=== PATIENT | male | born 1940 | race Caucasian/White ===

== ENCOUNTER 2022-12-13 16:20 | Inpatient (IN) | payer OTHER ==
[~2022-12-13] VITALS: Ht 175.3 cm; Wt 95.3 kg
[2022-12-13 16:35] VITALS: BP_SYST 132
--- NOTE | 2022-12-13 16:35 | NUR ---
Placed in room 4 . Placed on monitoring manager, blood pressure machine and pulse oximeter. To gown for exam. Side rails up. Report given to RITA Billings
--- NOTE | 2022-12-13 16:38 | NUR ---
ER at bedside examining patient.
--- NOTE | 2022-12-13 16:38 | NUR ---
PT BIB SELF, AMBULATED TO BED 4. PT IS A&OX4, C/O DIARRHEA FOR TWO AND A HALF WEEKS. PT DESCRIBES STOOLS WATERY, BUT NO BLOOD NOTED. PT DENIES PAIN AT THIS TIME. PT STATES HAS A HISTORY OF HTN, DIABETES. PT TAKES COUMADIN BY MOUTH DAILY. BEDRAILS UP X2. WILL CONTIUE TO MONITOR AND ASSESS.
[2022-12-13] MEDS ORDERED: NACL 0.9% 1,000 ML IV ONE (16:45)
[2022-12-13 16:57] LABS: BILIRUBIN,URINE NEGATIVE (NEGATIVE); BLOOD, URINE NEGATIVE (NEGATIVE); CLARITY/URINE CLEAR (CLEAR); COLOR,URINE YELLOW (YELLOW); GLUCOSE,URINE NEGATIVE (NEGATIVE); KETONES,URINE NEGATIVE (NEGATIVE); LEUKOCYTE ESTERASE ,URINE NEGATIVE (NEGATIVE); NITRITE, URINE NEGATIVE (NEGATIVE); PH,URINE 5.5 (5.0-8.0); PROTEIN URINE 1+ (NEGATIVE); UROBILINOGEN,URINE 0.2 (0.2-1.0)
[2022-12-13 17:05] LABS: BACTERIA,URINE FEW /HPF (None Seen); FINE GRANULAR CASTS,URINE 0-10 /LPF (None Seen); MUCUS,URINE None Seen /LPF (None Seen); RBC,URINE 0-3 /HPF (0-3); WBC,URINE NONE SEEN /HPF (0-3)
--- NOTE | 2022-12-13 17:17 | NUR ---
NS 1000ML BOLUS INITIATED. TO BE COMPLETED AT 1817.
--- NOTE | 2022-12-13 17:17 | NUR ---
# 20 gauge angiocath placed to LFA. Use of asceptic technique. Opsite placed over site. Blood return noted. Blood for lab drawn from site. Flushed with 10 cc of normal saline. No evidence of infiltration noted. Patient tolerated well.
[2022-12-13 17:21] LABS: BASOPHILS # (AUTO) 0.1 K/uL (0.0-0.2); BASOPHILS % (AUTO) 0.7 % (0.0-2.0); EOSINOPHILS # (AUTO) 0.4 K/uL (0.0-0.4); EOSINOPHILS % (AUTO) 4.1 % (0.0-4.0); HEMATOCRIT 29.9 % (36-54); HEMOGLOBIN 10.1 g/dL (14.0-18.0); LYMPHOCYTES # (AUTO) 0.9 K/uL (1.0-5.5); LYMPHOCYTES % (AUTO) 8.7 % (20.5-51.5); MEAN CORPUSCULAR HEMOGLOBIN 22 pg (27-31); MEAN CORPUSCULAR HGB CONC 34 % (32-36); MEAN CORPUSCULAR VOLUME 66 fL (79.0-98.0); MONOCYTES # (AUTO) 1.1 K/uL (0.0-1.0); MONOCYTES % (AUTO) 11.2 % (1.7-9.3); NEUTROPHILS # (AUTO) 7.5 K/uL (1.8-7.7); NEUTROPHILS % (AUTO) 75.3 % (40.0-70.0); PLATELET COUNT (AUTO) 251 K/uL (130-430); RED BLOOD CELL COUNT(AUTO) 4.55 MIL/uL (4.2-6.2); RED CELL DISTRIBUTION WIDTH 19.8 % (9.0-15.0)
[2022-12-13 17:31] LABS: ANION GAP 15 (5-15); CALCIUM 8.4 mg/dL (8.4-11.0); CHLORIDE 104 mmol/L (98-107); CREATININE 3.16 mg/dL (0.55-1.30); GLUCOSE 64 mg/dL (70-99); UREA NITROGEN, BLOOD 67 mg/dL (8-21)
[2022-12-13 17:36] LABS: ALANINE AMINOTRANSFERASE 34 U/L (12-78); ALBUMIN 3.4 g/dL (3.4-4.8); ASPARTATE AMINOTRANSFERASE 39 U/L (10-37); LIPASE 86 U/L (73-393); TOTAL BILIRUBIN 0.4 mg/dL (0.0-1.0)
--- NOTE | 2022-12-13 18:05 | NUR ---
MRSA OBTAINED, LABELED AND SENT TO LAB.
[2022-12-13] MEDS ORDERED: WARF4TAB72 PO (18:28)
[2022-12-13] MEDS ORDERED: BENA5TAB38 PO (18:28)
[2022-12-13] MEDS ORDERED: INSU100V SUBCUT (18:28)
[2022-12-13] MEDS ORDERED: ALFU10TA10 PO (18:28)
[2022-12-13] MEDS ORDERED: ROSU10TA2 PO (18:28)
--- NOTE | 2022-12-13 18:29 | NUR ---
MED REC AND BELONGING COMPLETED.
--- NOTE | 2022-12-13 18:30 | NUR ---
LAB AT BEDSIDE.
--- NOTE | 2022-12-13 19:23 | NUR ---
ENDORSED PT TO RITA ADAMES. ALL QUESTIONS AND CONCERNS ADDRESSED.
[2022-12-13] MEDS ORDERED: 0.45% NACL 1,000 ML IV SCH (19:45)
--- NOTE | 2022-12-13 19:48 | NUR ---
Admit bed requested Patient will be admitted to care of . Admitted to Tele unit. Diagnosis Dehydration and Acute Kidney Injury Inpatient Yes Observation No Orientation concerns or request close to nursing station No Covid Status Negatve On vent or bipap N/A Isolation requirements Contact Precautions? Pt has diarrhea. Needs a sitter No From Home Yes Requires Dialysis No Med Rec Completed Yes
--- NOTE | 2022-12-13 21:15 | NUR ---
Patient will be admitted to care of Dr. See. Admitted to Tele unit. Will go to room 123 bed A. Belongings list completed. Complete and up to date summary report printed. SBAR report given at bedside to RITA Melendrez with opportunity for questions.
[2022-12-13 21:55] VITALS: BP_SYST 126
[2022-12-13] MEDS ORDERED: DEXTROSE 50% JECT 50 ML DISP.SYRIN ONE (23:41)
[2022-12-13] MEDS ORDERED: D5W 1,000 ML IV PRN (23:45)
[2022-12-13] MEDS ORDERED: DEXTROSE 50% JECT 50 ML DISP.SYRIN IVP PRN (23:45)
[2022-12-13] MEDS ORDERED: GLUCOSE (DEXTROSE) ORAL GEL -Adults PO PRN (23:45)
--- NOTE | 2022-12-13 23:50 | NUR ---
Received pt from ED around 21:30 pm. c/c- diarrhea x 2 wk. Dx- PERLA and Dehydration. Pt awake and oriented x 4. All history was obtained by pt. HX of DM and humulog at home. t stated he hasn't eat last 2 days. Addendum: 12/14/22 at 0215 by [facility], RN RN Nurse checked pt's blood sugar at 23:16 pm- was 28 and 27. Pt awake and alert but unable to remember where he is. skin warm and no sweating sign. Dr Lang(ID) at bedside. changed ivf to D51/2NS at 125 ml/hr and Given d50%w 50 ml and given juice by oral. Then BS went up to 157 at MN. Informed to pt's daughter Kandy about pt's hypoglycemia. Also informed to Dr Chin about pt's hypoglycemia and updated Dr Lang's order.
[2022-12-14] MEDS ORDERED: DEXTROSE 50% JECT 50 ML DISP.SYRIN IVP ONE
[2022-12-14 00:28] VITALS: BP_SYST 110
[2022-12-14] MEDS: D5/0.45 NS 1,000 ML IV SCH ×3 (01:15→16:03)
[2022-12-14] MEDS ORDERED: cefTRIAXone 1 GM IVPB PREMIX 50 ML IV ONE (01:44)
[2022-12-14] MEDS: cefTRIAXone 1 GM in D5W 50 ML IV SCH ×3 (01:54→20:56)
--- NOTE | 2022-12-14 05:49 | NUR ---
CONSULTATION PAGED REASON FOR CONSULTATION: Dehydration, PERLA WAS CONSULT CALLED? Y PERSON WHO WAS NOTIFIED: Estefanía CONSULTING PHYSICIAN: Dr. Hester (Jaycob Archuleta is aeronautical engineering officer) REQUESTING PHYSICIAN: Dr. See
--- NOTE | 2022-12-14 06:36 | NUR ---
CONSULTATION PAGED REASON FOR CONSULTATION:DIARRHEA WAS CONSULT CALLED?Y PERSON WHO WAS NOTIFIED:FARZANA CONSULTING PHYSICIAN:BRIAN GEE KNIFEMAN SPECIALTY:ID KNIFEMAN PHONE NUMBER:[phone] REQUESTING PHYSICIAN:POONAM CAMACHO
--- NOTE | 2022-12-14 07:07 | NUR ---
Dr Lang was here last night and assessed pt. Pt's last blood sugar 99 at 06:30 am. IVF D51/2ns at 125 ml/hr. Sent stool specimen for OB, WBC, CULTURE and C-DIFF. Pt denied any distress at this time.
--- NOTE | 2022-12-14 07:20 | NUR ---
opening note received SBAR from night RN. Patient in bed, respirations even, non labored, bed in low and locked position call light within reach. bed alarm on.
[2022-12-14 08:00] VITALS: BP_SYST 110
[2022-12-14 08:32] LABS: BASOPHILS # (AUTO) 0.1 K/uL (0.0-0.2); BASOPHILS % (AUTO) 0.7 % (0.0-2.0); EOSINOPHILS # (AUTO) 0.7 K/uL (0.0-0.4); EOSINOPHILS % (AUTO) 7.2 % (0.0-4.0); HEMATOCRIT 28.5 % (36-54); HEMOGLOBIN 9.2 g/dL (14.0-18.0); LYMPHOCYTES # (AUTO) 1.1 K/uL (1.0-5.5); LYMPHOCYTES % (AUTO) 12.4 % (20.5-51.5); MEAN CORPUSCULAR HEMOGLOBIN 22 pg (27-31); MEAN CORPUSCULAR HGB CONC 32 % (32-36); MONOCYTES # (AUTO) 1.1 K/uL (0.0-1.0); MONOCYTES % (AUTO) 12.6 % (1.7-9.3); NEUTROPHILS # (AUTO) 6.2 K/uL (1.8-7.7); NEUTROPHILS % (AUTO) 67.1 % (40.0-70.0); PLATELET COUNT (AUTO) 213 K/uL (130-430); RED BLOOD CELL COUNT(AUTO) 4.18 MIL/uL (4.2-6.2); RED CELL DISTRIBUTION WIDTH 20.2 % (9.0-15.0); WHITE BLOOD COUNT (AUTO) 9.2 K/uL (4.8-10.8)
--- NOTE | 2022-12-14 08:34 | NUR ---
LICENSED HOME INSPECTOR Sosa bedside examining patient
[2022-12-14 08:40] LABS: MEAN CORPUSCULAR VOLUME 68 fL (79.0-98.0)
[2022-12-14] MEDS ORDERED: GASTROGRAFIN 120 ML ONE (08:42)
[2022-12-14 08:46] LABS: ANION GAP 11 (5-15); CALCIUM 8.1 mg/dL (8.4-11.0); CHLORIDE 109 mmol/L (98-107); CREATININE 2.82 mg/dL (0.55-1.30); GLUCOSE 103 mg/dL (70-99); UREA NITROGEN, BLOOD 63 mg/dL (8-21)
[2022-12-14 08:51] LABS: ALANINE AMINOTRANSFERASE 29 U/L (12-78); ALBUMIN 2.9 g/dL (3.4-4.8); ASPARTATE AMINOTRANSFERASE 33 U/L (10-37); TOTAL BILIRUBIN 0.3 mg/dL (0.0-1.0)
[2022-12-14] MEDS: metroNIDAZOLE 500 MG TABLET PO SCH ×2 (09:23→20:56)
--- NOTE | 2022-12-14 10:15 | NUR ---
CONSULTATION PAGED REASON FOR CONSULTATION:RENAL FAILURE WAS CONSULT CALLED?Y PERSON WHO WAS NOTIFIED:SARAHI CONSULTING PHYSICIAN:CARLINE ROD (DR.SHAH LEARY TECHNICIAN CHEMICAL CLEANING) SCHEDULE CLERK SPECIALTY:NEPHRO SCHEDULE CLERK PHONE NUMBER:[phone] REQUESTING PHYSICIAN:PEGGY PAYNE NP
--- NOTE | 2022-12-14 10:17 | NUR ---
CONSULTATION PAGED REASON FOR CONSULTATION:DIARRHEA WAS CONSULT CALLED?Y PERSON WHO WAS NOTIFIED:FARZANA CONSULTING PHYSICIAN:CHRISTEL CARLTON PROGRAM PARAPROFESSIONAL SPECIALTY:GI PROGRAM PARAPROFESSIONAL PHONE NUMBER:[phone] REQUESTING PHYSICIAN:PEGGY PAYNE NP
[2022-12-14 10:49] LABS: INR 6.9 (0.80-1.20); PROTHROMBIN TIME 63.6 SECS (9.5-12.5)
--- NOTE | 2022-12-14 10:50 | NUR ---
md DR PATEL BEDSIDE EXAMINING PATIENT, NEW ORDERS RECEIVED
--- NOTE | 2022-12-14 11:39 | NUR ---
CRITICAL INFORMED DR MIMS OF CRITICAL PT 63.6 NEW ORDERS RECEIVED.
--- NOTE | 2022-12-14 11:40 | NUR ---
COUMADIN SPOKE WITH BOOKER IN THE PHARMACY ADVISED THAT DR MIMS WANTS TO HOLD COUMADIN FOR 3 DAYS DUE TO ELEVATED PT/INR
[2022-12-14 11:50] VITALS: BP_SYST 119
[2022-12-14 14:03] LABS: INR 6.6 (0.80-1.20); PROTHROMBIN TIME 61.4 SECS (9.5-12.5)
--- NOTE | 2022-12-14 15:11 | NUR ---
md informed md that patient is requesting to eat. new orders received
--- NOTE | 2022-12-14 16:37 | NUR ---
family daughter is bedside. updated regarding status of patient, answered all questions, daughter verbalized understanding
[2022-12-14 18:23] VITALS: BP_SYST 120
--- NOTE | 2022-12-14 18:38 | NUR ---
nurse note patient in bed, respirations even, non labored, bed in low and locked position, call light within reach, bed alarm on. IVF's running as ordered. Patient denies any pain or discomfort.
--- NOTE | 2022-12-14 19:15 | NUR ---
Closed note Provided SBAR to night RN. Patient in bed, respirations even, non labored, bed in low and locked position, call light within reach, bed alarm on. IVF's running as ordered. Endorsed care to night RN.
--- NOTE | 2022-12-14 19:35 | NUR ---
Opening note Received SBAR from RITA Gilbert. Patient is awake, AOx4 resting in bed, no distress, denies pain. Nonlabored breathing on room air. IVF infusing via IV to LAC (it was alarming d/t elbow bent). Bed is locked in lowest position side rails up and bed alarm off. Patient states he is steady and has been walking to restroom (reports having loose BM). Updated board and call light w/in reach.
[2022-12-14 20:00] VITALS: BP_SYST 123
[2022-12-14] MEDS: ATORVASTATIN 20 MG TABLET PO SCH (20:56)
--- NOTE | 2022-12-14 21:05 | NUR ---
Meds Scheduled meds given, reviewed side effects and he verbalized understanding.
--- NOTE | 2022-12-14 21:15 | NUR ---
IV PLACEMENT: IV on LAC was causing pump to alarm d/t patient bending elbow. It became loose and leaked; no longer patent. Catheter was removed, tip visualized intact. # 20 gauge angiocath placed to RFA. Blood return noted and flushed w/10 cc of normal saline. No evidence of infiltration noted and patient tolerated. Resumed fluids.
[2022-12-14] MEDS ORDERED: PSEUDOEPHEDRINE HCL 30 MG TABLET PO ONE (21:45)
--- NOTE | 2022-12-14 21:49 | NUR ---
Dr. See s/w Dr. See and informed patient's Blood sugar is 167mg/dL and he does not have coverage; received regular insulin sliding scale. Also informed patient reports nasal congestion and requesting med; received medication order for Pseudoepherine one time; TORB
[2022-12-14] MEDS: INSULIN REGULAR, HUMAN 100 UNITS/ML, 3 ML VIAL (humuLIN R) SUBCUT PRN (22:31)
[2022-12-15 01:18] VITALS: BP_SYST 101
[2022-12-15] MEDS: D5/0.45 NS 1,000 ML IV SCH ×2 (03:39→13:26)
--- NOTE | 2022-12-15 03:45 | NUR ---
awake, IVF, BM Patient reports 2nd BM for the night and again it is very loose. IV fluids empty and hung new bag of D5 1/2 NS; infusing well, no s/sx of infiltration. He has no further needs.
[2022-12-15 04:59] LABS: ANION GAP 11 (5-15); CALCIUM 8.2 mg/dL (8.4-11.0); CHLORIDE 110 mmol/L (98-107); CREATININE 2.59 mg/dL (0.55-1.30); GLUCOSE 172 mg/dL (70-99); PHOSPHORUS 3.4 mg/dL (2.7-4.5); UREA NITROGEN, BLOOD 56 mg/dL (8-21)
[2022-12-15 05:01] LABS: HEMATOCRIT 27.7 % (36-54); MEAN CORPUSCULAR HEMOGLOBIN 22 pg (27-31); MEAN CORPUSCULAR HGB CONC 32 % (32-36); MEAN CORPUSCULAR VOLUME 67 fL (79.0-98.0); PLATELET COUNT (AUTO) 228 K/uL (130-430); RED BLOOD CELL COUNT(AUTO) 4.11 MIL/uL (4.2-6.2); WHITE BLOOD COUNT (AUTO) 7.7 K/uL (4.8-10.8)
[2022-12-15 05:09] LABS: PROTHROMBIN TIME 59.5 SECS (9.5-12.5)
[2022-12-15 05:10] LABS: INR 6.4 (0.80-1.20)
--- NOTE | 2022-12-15 05:15 | NUR ---
critical lab; PT, INR PT 59.5, INR 6.[address] See's cell number, no answer and voice mail is full. He is aware of critical lab from prior draws and has ordered hold coumadin for three days.
[2022-12-15 06:10] LABS: BASOPHILS % (MANUAL) 0 % (0-2); EOSINOPHILS % (MANUAL) 17 % (0-7); LYMPHOCYTES % (AUTO) 16.2 % (20.5-51.5); LYMPHOCYTES % (MANUAL) 5 % (20-46); MONOCYTES % (MANUAL) 13 % (0-11); NEUTROPHILS % (AUTO) 58.1 % (40.0-70.0)
[2022-12-15 06:11] LABS: BASOPHILS # (AUTO) 0.1 K/uL (0.0-0.2); BASOPHILS % (AUTO) 0.9 % (0.0-2.0); EOSINOPHILS # (AUTO) 0.8 K/uL (0.0-0.4); EOSINOPHILS % (AUTO) 10.8 % (0.0-4.0); LYMPHOCYTES # (AUTO) 1.2 K/uL (1.0-5.5); MONOCYTES # (AUTO) 1.1 K/uL (0.0-1.0); NEUTROPHILS # (AUTO) 4.5 K/uL (1.8-7.7)
[2022-12-15] MEDS: INSULIN REGULAR, HUMAN 100 UNITS/ML, 3 ML VIAL (humuLIN R) SUBCUT PRN ×3 (06:32→20:49)
--- NOTE | 2022-12-15 07:30 | NUR ---
OPENING NOTE ASLEEP. NO SIGN OF DISTRESS. IV INFUSING WELL. SAFETY CHECKS DONE. CALL LIGHT WITHIN REACH.
[2022-12-15 08:00] VITALS: BP_SYST 114
[2022-12-15] MEDS: metroNIDAZOLE 500 MG TABLET PO SCH ×2 (08:55→20:33)
[2022-12-15 11:33] VITALS: BP_SYST 119
--- NOTE | 2022-12-15 11:33 | NUR ---
SUGAR CHECK; DIARRHEA SUGAR CHECK 171 MG/DL. INSULIN COVERAGE GIVEN ORDERED PATIENT REPORTED ONE EPISODE OF LOOSE BOWEL MOVEMENT BROWN.
--- NOTE | 2022-12-15 15:41 | NUR ---
ROUNDS PATIENT WANTED TO EAT REGULAR FOOD AND WANTED TO GO HOME. EXPLAINED THAT WE ARE WAITING FOR THE GI DOCTOR TO COME AND MAKE ROUNDS.
[2022-12-15 17:16] VITALS: BP_SYST 130
[2022-12-15] MEDS ORDERED: PHYTONADIONE 10 MG/ML AMP SUBCUT ONE (17:30)
[2022-12-15] MEDS ORDERED: PHYTONADIONE 10 MG/ML AMP IM ONE (17:30)
[2022-12-15] MEDS ORDERED: GOLYTELY / COLYTE SOLUTION 4 LITERS PO ONE (18:00)
--- NOTE | 2022-12-15 18:53 | NUR ---
CLOSING NOTES VITAMIN K IM GIVEN ON RIGHT ARM AND SUB Q ON ABDOMEN. PATIENT UNDERSTANDS USE OF MED AND AGREED TO RECEIVE THEM. IV INTACT. PATIENT IS THINKING ABOUT GETTING COLONOSCOPY AND IS STILL REVIEWING THE CONSENT FORMS. ENCOURAGED PATIENT TO TAKE HIS TIME. WAITING FOR GOLYTELY FROM PHARMACY. ALL NEEDS MET THROUGHOUT SHIFT. SAFETY CHECKS DONE. CALL LIGHT AND THINGS NEEDED WITHIN REACH.
[2022-12-15 19:00] VITALS: BP_SYST 109; BP_SYST 162
--- NOTE | 2022-12-15 19:15 | NUR ---
change of shift.pt.to submit to colonoscopy in am:12/16/22.pt.reviewing the literature content of the consent;colonoscopy. pt.presents general status stable.respiratory status unlabored@room air.pt.capable to reposition self/ambulate unassisted. pt.presents iv access location rt forearm intact;patent.call light/telephone w/in access of the pt.
[2022-12-15 20:00] VITALS: BP_SYST 109; BP_SYST 162
--- NOTE | 2022-12-15 20:00 | NUR ---
pt assessed.v/s assessed values wnl.note b/p status.no c/o pain,nausea.diet status clear liquids to convert to npo diet status 2/t colonoscopy in am:12/16/22.i have initiated the administration of the oral prep;golytely.pt instructed as to the consumption of each cup/20mins.call light/telephone w/in access of the pt.
--- NOTE | 2022-12-15 20:30 | NUR ---
blood glucose assessed value;230mg/dl.
[2022-12-15] MEDS: cefTRIAXone 1 GM in D5W 50 ML IV SCH (20:33)
[2022-12-15] MEDS: ATORVASTATIN 20 MG TABLET PO SCH (20:33)
--- NOTE | 2022-12-15 21:00 | NUR ---
2100p medications administered.pt.capable to ingest the po medications w/out difficulty.insulin;regular;4-u administered. per sliding scale.no c/o pain,nausea.call light/telephone w/in access of the pt.
--- NOTE | 2022-12-15 22:00 | NUR ---
pt.assessed.pt.presents bm's 2/t golytely oral prep 2/t colonoscopy.no c/o pain,nausea.pt.capable to ambulate unassisted. call light/telephone w/in access of the pt.
[2022-12-16] VITALS: BP_SYST 152
--- NOTE | 2022-12-16 | NUR ---
pt.assessed.v/s assessed values wnl.no c/o pain,nausea.oral prep golytely completed.pt.presents bm's.pt.capable to reposition self.diet status converted to npo status.diet status npo reiterated to pt.call light/telephone w/in access of the pt.
[2022-12-16] MEDS: D5/0.45 NS 1,000 ML IV SCH (02:00)
--- NOTE | 2022-12-16 02:00 | NUR ---
pt.assessed.pt.quiescent.per flacc pain mgx pt.absent facial grimaces/body posturing.pt.capable to reposition self. call light/telephone placed w/in access of the pt.
--- NOTE | 2022-12-16 04:00 | NUR ---
pt.assessed.pt.quiescent.per flacc pain mgx pt.absent facial grimaces/body posturing.pt.capable to reposition self. call light/telephone w/in access of the pt.
[2022-12-16 07:05] LABS: BASOPHILS # (AUTO) 0.1 K/uL (0.0-0.2); BASOPHILS % (AUTO) 1.2 % (0.0-2.0); EOSINOPHILS # (AUTO) 0.4 K/uL (0.0-0.4); HEMATOCRIT 26.9 % (36-54); HEMOGLOBIN 9.1 g/dL (14.0-18.0); LYMPHOCYTES # (AUTO) 0.4 K/uL (1.0-5.5); LYMPHOCYTES % (AUTO) 7.5 % (20.5-51.5); MEAN CORPUSCULAR HEMOGLOBIN 22 pg (27-31); MEAN CORPUSCULAR HGB CONC 34 % (32-36); MEAN CORPUSCULAR VOLUME 65 fL (79.0-98.0); MONOCYTES # (AUTO) 0.8 K/uL (0.0-1.0); MONOCYTES % (AUTO) 13.9 % (1.7-9.3); NEUTROPHILS # (AUTO) 3.9 K/uL (1.8-7.7); NEUTROPHILS % (AUTO) 69.4 % (40.0-70.0); PLATELET COUNT (AUTO) 232 K/uL (130-430); RED BLOOD CELL COUNT(AUTO) 4.16 MIL/uL (4.2-6.2); RED CELL DISTRIBUTION WIDTH 19.2 % (9.0-15.0); WHITE BLOOD COUNT (AUTO) 5.6 K/uL (4.8-10.8)
[2022-12-16 07:26] LABS: ANION GAP 12 (5-15); CALCIUM 8.4 mg/dL (8.4-11.0); CHLORIDE 112 mmol/L (98-107); GLUCOSE 124 mg/dL (70-99); UREA NITROGEN, BLOOD 35 mg/dL (8-21)
[2022-12-16 07:35] LABS: INR 1.9 (0.80-1.20); PROTHROMBIN TIME 18.9 SECS (9.5-12.5)
--- NOTE | 2022-12-16 07:45 | NUR ---
Received report patient refused colonoscopy procedure scheduled today, Dr. See was notified
[2022-12-16 07:51] VITALS: BP_SYST 158
--- NOTE | 2022-12-16 08:04 | NUR ---
D/C Patient Patient discharge home per Dr See. Ambulatory with steady gait user personal cane. Patient in stable condition, ID band removed. IV catheter removed by NOC nurse, dressing applied, no active bleeding. Patient instructed to F/U with primary doctor.
== END 2022-12-16 08:04 | disposition home or self-care (01) | DRG 392 ==
LOC: SED 16:20 → STU 19:39
PROVIDERS: ADMIT Internal Medicine; ATTEND Internal Medicine
DX: K52.9 Noninfective gastroenteritis and colitis, unspecified (principal); E87.20 Acidosis, unspecified; E11.649 Type 2 diabetes mellitus with hypoglycemia without coma; N18.30 Chronic kidney disease, stage 3 unspecified; E78.5 Hyperlipidemia, unspecified; F17.210 Nicotine dependence, cigarettes, uncomplicated; D63.8 Anemia in other chronic diseases classified elsewhere; T45.515A Adverse effect of anticoagulants, initial encounter; I25.10 Atherosclerotic heart disease of native coronary artery without angina pectoris; I12.9 Hypertensive chronic kidney disease with stage 1 through stage 4 chronic kidney disease, or unspecified chronic kidney disease; E11.22 Type 2 diabetes mellitus with diabetic chronic kidney disease; Z20.822 Contact with and (suspected) exposure to COVID-19; Z79.4 Long term (current) use of insulin; Z79.899 Other long term (current) drug therapy; Z79.01 Long term (current) use of anticoagulants; Z95.1 Presence of aortocoronary bypass graft; Z95.2 Presence of prosthetic heart valve; Y92.89 Other specified places as the place of occurrence of the external cause
CPT/HCPCS: 36415; 71045; 76376; 76770; 80048; 80053; 81000; 82272; 83605; 83690; 84100; 84443; 84550; 85007; 85025; 85027; 85610-TC; 85730-TC; 87040; 87045-TC; 87046; 87230-TC; 89055; 96360; 99285; G0378; J0696; J1815; J3430; J7060; Q9963